=== PATIENT | female | born 1960 | race Caucasian/White ===

== ENCOUNTER 2022-07-30 14:39 | Outpatient (CLI) | payer BC | END 2022-07-30 14:40 | disposition home or self-care (01) | LOC: CSHMAMMO 14:39 | PROVIDERS: ATTEND Internal Medicine | DX: Z12.31 Encounter for screening mammogram for malignant neoplasm of breast (principal); Z91.89 Other specified personal risk factors, not elsewhere classified | CPT/HCPCS: 77063; 77067 ==